=== PATIENT | male | born 1955 | race Caucasian/White ===

== ENCOUNTER → 2017-03-10 | Day surgery (SDC) | payer OTHER ==
[~2017-03-10] MED LIST: BUPIVACAINE 0.5% 30 ML SDV ONE; DEXAMETHASONE 4 MG/ML VIAL IVP PRN; DEXAMETHASONE 4 MG/ML VIAL ONE; HYDROmorphONE/DILAUDID 1 MG/ML SYR IVP PRN; IOPAMIDOL (ISOVUE-300) 100 ML BTL ONE; LIDOCAINE 1% 5 ML SDV ONE; LR 1,000 ML IV ONE; LR 1,000 ML IV SCH; LR 500 ML IV PRN; MEPERIDINE 25 MG/ML SYR IVP PRN; MIDAZOLAM 2 MG/2 ML VIAL IVP ONE; NALOXONE HCL 0.4 MG/ML INJ IVP PRN; NS 1,000 ML IV ONE; ONDANSETRON 4 MG/2 ML VIAL ONE; OXYCODONE/APAP 5/325 TAB PO PRN; PROPOFOL 200 MG/20 ML VIAL ONE; ROCURONIUM 50 MG/5 ML VIAL ONE; ceFAZolin 1 GM VIAL ONE; fentaNYL 100 MCG/2 ML INJ IVP PRN; fentaNYL 100 MCG/2 ML INJ ONE
--- NOTE | 2017-03-10 09:13 | EDPHY ---
H & P Time Seen by Provider: 03/10/17 09:12 HPI/ROS: CHIEF COMPLAINT: Abdominal pain HISTORY OF PRESENT ILLNESS: The patient presents to the ED with a 1 day history of abdominal pain. The patient reports a periumbilical pain with some pain in his right lower quadrant. The patient has had a history of an umbilical hernia for the past several months. He states that he is never noticed whether it is been irreducible in the past. The patient reports moderate pain. He denies fever, dysuria, melena or diarrhea. The patient has no significant past surgical history. The patient states that he has had no recent history of an upper respiratory infection or additional acute medical complaints. REVIEW OF SYSTEMS: A comprehensive 10 point review of systems is otherwise negative aside from elements mentioned in the history of present illness. Source: Patient Exam Limitations: No limitations - Medical/Surgical History Hx Diabetes: No Other PMH: Past medical history: Noncontributory - Social History Smoking Status: Former smoker - Physical Exam Exam: General Appearance: Alert, no distress Eyes: Pupils equal and round no pallor or injection ENT, Mouth: Mucous membranes moist Respiratory: There are no retractions, lungs are clear to auscultation Cardiovascular: Regular rate and rhythm Gastrointestinal: The patient is noted to have an umbilical hernia which was reduced. Tenderness to palpation right lower quadrant. Neurological: 5/5 strength noted all 4 extremities Skin: Warm and dry, no rashes Musculoskeletal: Neck is supple nontender Extremities: symmetrical, full range of motion Constitutional: Initial Vital Signs Temperature (C) 36.9 C 03/10/17 09:00 Heart Rate 66 03/10/17 09:00 Respiratory Rate 18 03/10/17 09:00 Blood Pressure 122/84 H 03/10/17 09:00 O2 Sat (%) 97 03/10/17 09:00 O2 Delivery Mode Room Air Allergies/Adverse Reactions: No Known Allergies Allergy (Verified 03/10/17 09:17) Home Medications: Medication Instructions Recorded Valsartan [Diovan (*)] 80 mg PO 03/10/17 Medical Decision Making ED Course/Re-evaluation: The patient did have a umbilical hernia which was incarcerated. I was able to reduce the hernia which resulted in improvement of the patient's pain. The patient continued to have some right lower quadrant tenderness. Given this finding, the patient was taken for a CT scan of the abdomen pelvis to exclude a concurrent diagnosis such as appendicitis. The patient return from his CT scan. He was re-evaluated and found to have recurrence of his periumbilical hernia. CT scan does demonstrate evidence of an incarcerated hernia with evidence of inflammatory changes to the small bowel. I attempted to reduce the hernia again without success. The patient received IV morphine and a L of normal saline. I consulted with Dr. March from General surgery at 10:30 a.m. to evaluate the patient for possible incarcerated/strangulated hernia. Differential Diagnosis: Differential diagnosis considered includes incarcerated hernia, bowel obstruction, peritonitis, appendicitis, mesenteric adenitis - Data Points Laboratory Results: Laboratory Results 03/10/17 09:47 03/10/17 03/10/17 09:47 09:42 WBC 5.56 10^3/uL 10^3/uL (3.80-9.50) RBC 4.93 10^6/uL 10^6/uL (4.40-6.38) Hgb 15.7 g/dL g/dL (13.7-17.5) POC Hgb 16.7 gm/dL gm/dL (13.7-17.5) Hct 45.8 % % (40.0-51.0) POC Hct 49 % % (40-51) MCV 92.9 fL fL (81.5-99.8) MCH 31.8 pg pg (27.9-34.1) MCHC 34.3 g/dL g/dL (32.4-36.7) RDW 12.5 % % (11.5-15.2) Plt Count 337 10^3/uL 10^3/uL (150-400) MPV 8.5 fL L fL (8.7-11.7) Neut % (Auto) 51.8 % % (39.3-74.2) Lymph % (Auto) 33.5 % % (15.0-45.0) [place] % (Auto) 11.2 % % (4.5-13.0) Eos % (Auto) 2.2 % % (0.6-7.6) Baso % (Auto) 0.9 % % (0.3-1.7) Nucleat RBC Rel Count 0.0 % % (0.0-0.2) Absolute Neuts (auto) 2.89 10^3/uL 10^3/uL (1.70-6.50) Absolute Lymphs (auto) 1.86 10^3/uL 10^3/uL (1.00-3.00) Absolute Monos (auto) 0.62 10^3/uL 10^3/uL (0.30-0.80) Absolute Eos (auto) 0.12 10^3/uL 10^3/uL (0.03-0.40) Absolute Basos (auto) 0.05 10^3/uL 10^3/uL (0.02-0.10) Absolute Nucleated RBC 0.00 10^3/uL 10^3/uL (0-0.01) Immature Gran % 0.4 % % (0.0-1.1) Immature Gran # 0.02 10^3/uL 10^3/uL (0.00-0.10) POC Sodium 140 mEq/L mEq/L (134-144) POC Potassium 3.9 mEq/L mEq/L (3.3-5.0) POC Chloride 100 mEq/L mEq/L (97-110) POC BUN 17 mg/dL mg/dL (7-23) POC Creatinine 0.8 mg/dL mg/dL (0.7-1.3) POC Glucose 84 mg/dL mg/dL (70-100) Point of Care Test Results: 03/10/17 09:42 POC Sodium 140 POC Potassium 3.9 POC Chloride 100 POC BUN 17 POC Creatinine 0.8 POC Glucose 84 Departure - Departure Referrals: Topher Juan MD [Primary Care Provider] - As per Instructions
[2017-03-10 09:57] LABS: % IMMATURE GRANULYOCYTES 0.4 % (0.0-1.1); ABSOLUTE IMMATURE GRANULOCYTES 0.02 10^3/uL (0.00-0.10); ADD DIFF? NO; ADD MORPH? NO; ADD SCAN? NO; ATYPICAL LYMPHOCYTE FLAG 20 (0-99); FRAGMENT RBC FLAG 0 (0-99); HEMATOCRIT 45.8 % (40.0-51.0); HEMOGLOBIN 15.7 g/dL (13.7-17.5); LEFT SHIFT FLG 0 (0-99); LIPEMIA HEMOLYSIS FLAG 90 (0-99); MEAN CELL HEMOGLOBIN 31.8 pg (27.9-34.1); MEAN CELL HEMOGLOBIN CONCENTR. 34.3 g/dL (32.4-36.7); MEAN CELL VOLUME 92.9 fL (81.5-99.8); MEAN PLATELET VOLUME 8.5 fL (8.7-11.7); PLATELET CLUMPS FLAG 0 (0-99); PLATELET COUNT 337 10^3/uL (150-400); RED BLOOD CELL COUNT 4.93 10^6/uL (4.40-6.38); RED CELL DISTRIBUTION WIDTH 12.5 % (11.5-15.2)
--- NOTE | 2017-03-10 13:28 | PDANEPAE ---
ANE History of Present Illness 61 year old male with history of hypertension, on diovan, no beta blockers. His blood pressure is well controlled. He has an incarcerated umblicial hernia. He uses occasional cannabis, last use 03/09/17. ANE Past Medical History - Cardiovascular History Hx Hypertension: Yes Hx Arrhythmias: No Hx Chest Pain: No Hx Coronary Artery / Peripheral Vascular Disease: No Hx CHF / Valvular Disease: No Hx Palpitations: No - Pulmonary History Hx COPD: No Hx Asthma/Reactive Airway Disease: No Hx Recent Upper Respiratory Infection: No - Neurologic History Hx Cerebrovascular Accident: No Hx Seizures: No Hx Dementia: No - Endocrine History Hx Diabetes: No - Renal History Hx Renal Disorders: No - Liver History Hx Hepatic Disorders: No - Neurological & Psychiatric Hx Hx Neurological and Psychiatric Disorders: No - Cancer History Hx Cancer: No - Congenital Disorder History Hx Congenital Disorders: No - GI History Hx Gastrointestinal Disorders: No ANE Review of Systems - Exercise capacity METS (RN): 6 METS ANE Patient History - Allergies Allergies/Adverse Reactions: No Known Allergies Allergy (Verified 03/10/17 09:17) - Home Medications Home Medications: Alendronate Sodium [Fosamax 70 MG (*)] 70 mg PO MO@0700 03/10/17 [Last Taken 09/10] Multivitamins [Multivitamin (*)] 1 each PO DAILY 03/10/17 [Last Taken 03/09/17] Valsartan [Diovan (*)] 160 mg PO DAILY 03/10/17 [Last Taken 03/09/17] - NPO status NPO Since - Liquids (Date): 03/10/17 NPO Since - Liquids (Time): 06:30 NPO Since - Solids (Date): 03/09/17 NPO Since - Solids (Time): 19:00 - Smoking Hx Smoking Status: Former smoker ANE Labs/Vital Signs - Labs Result Diagrams: 03/10/17 09:47 - Vital Signs Blood Pressure: 127/84 Heart Rate: 58 Respiratory Rate: 14 O2 Sat (%): 96 Height: 172.72 cm Weight: 72.575 kg ANE Physical Exam - Airway Neck exam: FROM Mallampati Score: Class 1 Mouth exam: normal dental/mouth exam - Pulmonary Pulmonary: no respiratory distress - Cardiovascular Cardiovascular: regular rate and rhythym - ASA Status ASA Status: II ANE Anesthesia Plan Anesthesia Plan: general endotracheal anesthesia Urgent/Emergent Case: Anes eval completed preop but documented later for safe timely pt care
--- NOTE | 2017-03-10 13:31 | PDGENHP ---
History and Physical - Chief Complaint Incarcerated umbilical hernia with inflammed small bowel - History of Present Illness This is a 61 yo man with several year hx of reducible umbilical hernia. This morning 5 am start of worsening pain. Unable to reduce hernia. No nausea/ vomiting. No radiation of pain. PMH: HTN, frontal skull fx PSH: back surgery L3 Medications: Diovan 160 mg daily FH: Father NHL All: NKDA Soc Hx: no smoking ROS: abdominal pain/hernia site. All others reviewed and are negative Vital Signs Temp Pulse Resp BP Pulse Ox 37.2 C 58 L 14 127/84 H 96 03/10/17 12:01 03/10/17 12:01 03/10/17 12:01 03/10/17 12:01 03/10/17 12:01 AA&O RRR CTA Abd umbilical hernia tender, irreducible. No erythema/hepatosplenomegaly Ext: 2+ pulses bilat dp, rad No adenopathy inguinal/cervical No skin rashes Normal affect Laboratory Results 03/10/17 09:47 03/09/17 03/10/17 03/11/17 05:59 05:59 05:59 Intake Total 1000 Balance [address] 03/10/17 09:54 Impression: 1. Periumbilical abdominal wall hernia with small bowel loop extending through the hernia defect demonstrating surrounding inflammatory changes as well as small bowel obstruction. Recommend surgical consult. 2. Nonspecific left renal cortical lesions up to 2.4 x 2 cm which may represent complex cysts or neoplasms. Recommend renal ultrasound evaluation. Findings and recommendations discussed with Emergency Department physician, Zach Alatorre, at 1020 hours on March 10, 2017. Final report concurs with initial preliminary interpretation. Abdomen/Pelvis Ultrasound 03/10/17 10:46 Impression: Benign-appearing left renal cyst with incomplete characterization of the renal findings on the earlier CT. Recommend CT renal mass protocol on another day (recent contrast administration precludes performance of the study today). Findings discussed with Zach Alatorre 03/10/2017 at 1219 hours. Impression/Plan: Incarcerated umbilical hernia Will need urgent repair Risks benefits and alternatives outlined and verbal confirmation of understanding Possible enterectomy. NPO/IVF History Information - Allergies/Home Medication List Allergies/Adverse Reactions: No Known Allergies Allergy (Verified 03/10/17 09:17) Home Medications: Alendronate Sodium [Fosamax 70 MG (*)] 70 mg PO MO@0700 03/10/17 [Last Taken 09/10] Multivitamins [Multivitamin (*)] 1 each PO DAILY 03/10/17 [Last Taken 03/09/17] Valsartan [Diovan (*)] 160 mg PO DAILY 03/10/17 [Last Taken 03/09/17] I have personally reviewed and updated: family history, medical history, social history, surgical history - Past Medical History hypertension - Social History Smoking Status: Former smoker Physical Exam Temp Pulse Resp BP Pulse Ox 37.2 C 58 L 14 127/84 H 96 03/10/17 12:01 03/10/17 12:01 03/10/17 12:01 03/10/17 12:01 03/10/17 12:01 Lab Data & Imaging Review 03/10/17 09:47 WBC 5.56 10^3/uL (3.80-9.50) 03/10/17 09:47 RBC 4.93 10^6/uL (4.40-6.38) 03/10/17 09:47 Hgb 15.7 g/dL (13.7-17.5) 03/10/17 09:47 POC Hgb 16.7 gm/dL (13.7-17.5) 03/10/17 09:42 Hct 45.8 % (40.0-51.0) 03/10/17 09:47 POC Hct 49 % (40-51) 03/10/17 09:42 MCV 92.9 fL (81.5-99.8) 03/10/17 09:47 MCH 31.8 pg (27.9-34.1) 03/10/17 09:47 MCHC 34.3 g/dL (32.4-36.7) 03/10/17 09:47 RDW 12.5 % (11.5-15.2) 03/10/17 09:47 Plt Count 337 10^3/uL (150-400) 03/10/17 09:47 MPV 8.5 fL (8.7-11.7) L 03/10/17 09:47 Neut % (Auto) 51.8 % (39.3-74.2) 03/10/17 09:47 Lymph % (Auto) 33.5 % (15.0-45.0) 03/10/17 09:47 [place] % (Auto) 11.2 % (4.5-13.0) 03/10/17 09:47 Eos % (Auto) 2.2 % (0.6-7.6) 03/10/17 09:47 Baso % (Auto) 0.9 % (0.3-1.7) 03/10/17 09:47 Nucleat RBC Rel Count 0.0 % (0.0-0.2) 03/10/17 09:47 Absolute Neuts (auto) 2.89 10^3/uL (1.70-6.50) 03/10/17 09:47 Absolute Lymphs (auto) 1.86 10^3/uL (1.00-3.00) 03/10/17 09:47 Absolute Monos (auto) 0.62 10^3/uL (0.30-0.80) 03/10/17 09:47 Absolute Eos (auto) 0.12 10^3/uL (0.03-0.40) 03/10/17 09:47 Absolute Basos (auto) 0.05 10^3/uL (0.02-0.10) 03/10/17 09:47 Absolute Nucleated RBC 0.00 10^3/uL (0-0.01) 03/10/17 09:47 Immature Gran % 0.4 % (0.0-1.1) 03/10/17 09:47 Immature Gran # 0.02 10^3/uL (0.00-0.10) 03/10/17 09:47 POC Sodium 140 mEq/L (134-144) 03/10/17 09:42 POC Potassium 3.9 mEq/L (3.3-5.0) 03/10/17 09:42 POC Chloride 100 mEq/L (97-110) 03/10/17 09:42 POC BUN 17 mg/dL (7-23) 03/10/17 09:42 POC Creatinine 0.8 mg/dL (0.7-1.3) 03/10/17 09:42 POC Glucose 84 mg/dL (70-100) 03/10/17 09:42
--- NOTE | 2017-03-10 16:21 | POSTOPPROG ---
Post Op Note Date of Operation: 03/10/17 Surgeon: Francisco March Filling Technician: None Anesthesia: GET(General Endotracheal) Pre-op Diagnosis: Umbilical hernia, incarcerated Post-op Diagnosis: Same Procedure: Open umbilical hernia repair primary Findings: No infarction of the bowel Inf/Abcess present in the surg proc area at time of surgery?: No EBL: Minimal Complications: None Specimen(s): None
--- NOTE | 2017-03-10 16:25 | SUROPNOTE ---
TD Operative Report - Surgery Indications for surgery: This is a 61-year-old gentleman who presents to the hospital with acute incarcerated small bowel. Initial reduction emergency room only resulted in worsening of his abdominal pain with incarceration immediately. CT scan of the abdomen demonstrated small bowel with inflammation in the defect. Ultrasound for renal cyst did not demonstrate any acute pathology Preop diagnosis: Incarcerated umbilical hernia Postop diagnosis same Surgeon: Francisco March Anesthesia: General endotracheal anesthesia Specimens: None EBL 5 mL Fluids Given: 1 L crystalloid Procedure: The patient was brought into the operative room after induction endotracheal anesthesia in supine position his abdomen was prepped with chlorhexidine and draped sterilely. Time-out procedure was then performed according institutional standards. Local anesthetic was infused in skin and subcutaneous tissues, periumbilically. Supraumbilical curvilinear incision was made deepened electrocautery. The hernia was identified with a sac was opened the bowel was inspected which appeared viable. All adhesions were taken down with sharp dissection and electrocautery. Judicious use of electrocautery for hemostasis allowed us to then primarily closed the defect which was approximately 1.5 cm with 0 Ethibond suture. 3 [id number] sutures were used. Needle instrument sponges were accounted for. The fascia was then reapproximated with the umbilical skin and the incision was closed using 4 Monocryl suture. Dermabond was applied. The patient was awakened extubated taken to recovery room in stable condition no immediate complications.
[2017-03-10 18:05] VITALS: RESP 16
[2017-03-10 18:16] VITALS: BP 120/66; PULSE 59; TEMP 97.9; O2SAT 96
== END | disposition home or self-care (01) ==
LOC: FSGY 10:32 → UNDOADMOB 10:39
PROVIDERS: ATTEND Surgery
PROC: 0WQF0ZZ Repair Abdominal Wall, Open Approach (ICD-10-PCS; principal; 2017-03-10 13:15)
DX: K42.0 Umbilical hernia with obstruction, without gangrene (principal); N28.1 Cyst of kidney, acquired
CPT/HCPCS: 82947-QW; J0690; J1100; J1200; J2405; J2704; J3010; Q9967

== ENCOUNTER → 2017-07-19 | Outpatient (CLI) | payer OTHER | LOC: BMCIMAGING 11:10 | PROVIDERS: ATTEND Internal Medicine ==

== ENCOUNTER → 2018-07-11 | Outpatient (CLI) | payer OTHER | LOC: FIMAGING 09:52 | PROVIDERS: ATTEND Internal Medicine | DX: Z13.820 Encounter for screening for osteoporosis (principal); M85.89 Other specified disorders of bone density and structure, multiple sites ==